=== PATIENT | male | born 1995 | race Caucasian/White ===

== ENCOUNTER 2023-03-01 19:03 | Emergency (ER) | payer OTHER, SELFPAY ==
[2023-03-01 19:15] VITALS: BP 148/67; PULSE 96; RESP 18; TEMP 36.9; O2SAT 100; BMI 26.7
--- NOTE | 2023-03-02 00:34 | ED.ANIMALBIT ---
HPI - Animal Bite General Chief Complaint: Animal Bite Stated Complaint: poss allergic reaction to tick/rt knee swelling Time Seen by Provider: 03/02/23 00:32 Source: patient Mode of arrival: Family Vehicle History of Present Illness HPI narrative: Patient when year old healthy male presents a tick bite. Girlfriend removed tick he has not in a plastic bag. Small area where the tick bit him on left ribs. Girlfriend concern for Lyme disease patient is here at girlfriend request and has no complaints. Related Data Previous Rx's Medication Instructions Recorded albuterol sulfate 90 mcg/actuation 2 puff inhalation Q6H PRN 10/14/19 aerosol inhaler bronchospasm #8.5 grams Allergies Allergy/AdvReac Type Severity Reaction Status Date / Time No Known Drug Allergies Allergy Verified 11/02/20 08:41 Review of Systems Review of Systems ROS Unobtainable: All systems reviewed & are unremarkable except as noted in HPI and below Patient History Medical History Attention deficit disorder (06/14/16) Facial laceration Forehead contusion Low back pain Family History Grandfather Age: 80 Hypertension Diabetes mellitus Grandmother Age: 75 Hypertension High cholesterol Social History marital status: unmarried,single Smoking Status: Current every day smoker alcohol intake: former (DUI APRIL 2016) substance use type: does not use Smoking Status: Current every day smoker Exam Initial Vital Signs Initial Vital Signs: Vital Signs Temperature 98.5 F 03/01/23 19:15 Pulse Rate 96 H 03/01/23 19:15 Respiratory Rate 18 03/01/23 19:15 Blood Pressure 148/67 H 03/01/23 19:15 Pulse Oximetry 100 03/01/23 19:15 Oxygen Delivery Method Room Air 03/01/23 19:15 GENERAL: Well-appearing, well-nourished and in no acute distress. CARDIOVASCULAR: peripheral pulses in tact, cap refill <2 sec RESPIRATORY: No respiratory distress, speaks in full sentences without difficulty EXTREMITIES: Normal range of motion, no clubbing or edema. Neurovascularly intact NEUROLOGICAL: Cranial nerves II through XII grossly intact. Normal gait and speech. SKIN: Small erythematous area scabbed over no target lesion difficult hives swelling induration or fluctuation Course Orders Ordered: Discontinued Medications Doxycycline Hyclate (Doxycycline Hyclate 100 Mg Tablet) 100 mg PO NOW ONE Stop: 03/02/23 00:46 Last Admin: 03/02/23 01:11 Dose: 100 mg Documented By: EILEEN Doxycycline Hyclate (Doxycycline Hyclate 100 Mg Tablet) 100 mg PO NOW ONE Stop: 03/02/23 00:54 Last Admin: 03/02/23 01:11 Dose: 100 mg Documented By: EILEEN Vital Signs Vital signs: Vital Signs - 8 hr 03/01/23 19:15 03/02/23 01:14 Temperature 98.5 F Pulse Rate 96 H 85 Respiratory Rate 18 16 Blood Pressure 148/67 H 111/63 Pulse Oximetry 100 99 Oxygen Delivery Method Room Air Room Air MDM - Animal Bite MDM Narrative Medical decision making narrative: Patient is a healthy 27-year-old male who was bit by a tick tick was removed. Likely within 72 hours. He is given 200 mg of doxycycline for prophylaxis tick bite. No other testing or intervention is required Discharge Plan Departure Patient Disposition: Home Clinical Impression: Tick bite Instructions: How to Remove a Tick, Protect Yourself from Tickborne Illnesses Activity Restrictions/Additional Instructions: *You have been diagnosed with tick bite *What to do: At this time take antibiotic to prevent Lyme disease *Continue to take medications as directed You received doxycycline 200 mg in the ED to help prevent Lyme disease *Follow up with your primary care provider in 2-3 days or call [phone] *Return to ER if you should have rash confusion fever body or any new, worsening or concerning symptoms Prescriptions: No Action albuterol sulfate 90 mcg/actuation HFA aerosol inhaler 2 puff INHALATION Q6H PRN (Reason: bronchospasm) Qty: 8.5 1RF Referrals: Favian Bernal MD [Primary Care Provider] - Stand Alone Forms: Patient Portal/API
[2023-03-02] MEDS: DOXYCYCLINE HYCLATE 100 MG TABLET PO ×2 (01:11)
[2023-03-02 01:14] VITALS: BP 111/63; PULSE 85; RESP 16; O2SAT 99
== END 2023-03-02 01:16 | disposition home or self-care (01) ==
PROVIDERS: Emergency Provider Emergency Medicine; Family Provider Family Medicine; PCP Family Medicine
DX: S20.362A Insect bite (nonvenomous) of left front wall of thorax, initial encounter (principal); W57.XXXA Bitten or stung by nonvenomous insect and other nonvenomous arthropods, initial encounter
CPT/HCPCS: 99283